=== PATIENT | male | born 1985 | race Two or more races ===

== ENCOUNTER 2023-02-20 07:03 | Day surgery (SDC) | payer OTHER ==
[2023-02-16 11:49] LABS: HEMATOCRIT 46.1 % (39.0-48.0); HEMOGLOBIN 16.4 g/dL (13-16.00); MEAN CORPUSCULAR HEMOGLOBIN 29.4 pg (27.00-32.0); MEAN CORPUSCULAR HGB CONC 35.5 g/dl (32.0-36.0); PLATELET COUNT 198 K/uL (150-450); RED BLOOD COUNT 5.56 M/uL (4.00-6.00); RED CELL DISTRIBUTION WIDTH 13.5 % (11.5-14.5)
[2023-02-16 11:56] LABS: URINE APPEARANCE Cloudy; URINE BILIRRUBIN Negative (NEGATIVE); URINE BLOOD Negative; URINE COLOR Yellow; URINE GLUCOSE Negative (NEGATIVE); URINE LEUKOCYTE Negative; URINE NITRATE Negative; URINE PROTEIN Trace (NEGATIVE)
[2023-02-16 12:01] LABS: URINE BACTERIA 30.2 uL (0.0-1933); URINE RBC 5.1 uL (0.0-20.8)
[2023-02-16 12:13] LABS: INR 1.02; PROTHROMBIN TIME 10.7 SECONDS (9.0-11.5)
[2023-02-16 12:15] LABS: URINE EPITHELIAL CELLS 0.9 uL (0.0-38.8)
[2023-02-16 12:44] LABS: ALBUMIN 4.3 gm/dL (3.4-5.0); BILIRUBIN TOTAL 0.63 mg/dL (0.3-1.2); CALCIUM 9.1 mg/dL (8.5-10.1); CREATININE SERUM 0.97 mg/dL (0.70-1.30); GFR 87.09; POTASSIUM 4.04 mEq/L (3.5-5.1); TOTAL PROTEIN 8.3 gm/dL (6.4-8.2)
== END 2023-02-20 14:45 | disposition home or self-care (01) ==
LOC: CIR.AMB 07:03
PROVIDERS: ATTEND Specialist
DX: D21.0 Benign neoplasm of connective and other soft tissue of head, face and neck (principal); R22.1 Localized swelling, mass and lump, neck; Z20.822 Contact with and (suspected) exposure to COVID-19